=== PATIENT | female | born 1950 | race Caucasian/White ===

== ENCOUNTER → 2020-01-25 10:22 | Outpatient (CLI) | payer MEDICARE, OTHER, SELFPAY ==
[2020-01-24 11:41] VITALS: BMI 37.0
== END ==
PROVIDERS: PCP Internal Medicine; Visit Provider Physician Assistant
DX: Z20.828 Contact with and (suspected) exposure to other viral communicable diseases (principal); J02.9 Acute pharyngitis, unspecified
CPT/HCPCS: 87635; C9803; U0003